=== PATIENT | male | born 1935 | race Caucasian/White ===

== ENCOUNTER 2019-01-09 11:19 | Inpatient (IN) | payer OTHER, MEDICARE ==
[~2019-01-09] VITALS: Ht 175.3 cm; Wt 88.1 kg
[~2019-01-09 11:19] MED LIST: ASCO500 PO; ASPI81EC PO; BACL20; COLCHICINE0.6 MG PO; Cipro500 MG PO; Flagyl500 MG PO; GLIP10 PO; INSLIS75I SC; INSN100I SC; METO50ER PO; PSYL5.85P PO; SIMV40 PO
[2019-01-09 12:37] LABS: BASOPHILS ABSOLUTE AUTO 0.02 K/mm3 (0.00-0.23); BASOPHILS PERCENT AUTO 0 % (0-2); EOSINOPHILS ABSOLUTE AUTO 0.05 K/mm3 (0.00-0.68); EOSINOPHILS PERCENT AUTO 1 % (0-6); Hematocrit 34.8 % (37.0-53.0); Hemoglobin 10.9 g/dL (13.5-17.5); IMMATURE GRAN ABSOLUTE AUTO 0.04 K/mm3 (0.00-0.10); IMMATURE GRAN PERCENT AUTO 1 % (0-1); LYMPHOCYTES ABSOLUTE AUTO 0.46 K/mm3 (0.84-5.20); LYMPHOCYTES PERCENT AUTO 7 % (21-46); MONOCYTES ABSOLUTE AUTO 0.25 K/mm3 (0.16-1.47); MONOCYTES PERCENT AUTO 4 % (4-13); Mean Corpuscular HGB 28.4 pg (26.0-34.0); Mean Corpuscular HGB Conc 31.3 g/dL (31.5-36.5); Mean Corpuscular Volume 91 fL (80-100); Mean Platelet Volume 11.2 fL (9.1-12.4); NEUTROPHILS ABSOLUTE AUTO 6.25 K/mm3 (1.96-9.15); NEUTROPHILS PERCENT AUTO 88 % (41-73); Platelet Count 118 K/mm3 (150-400); RDW Coefficient Variation 12.4 % (11.7-14.2); RDW Standard Deviation 40.9 fL (35.1-46.3); Red Blood Cell Count 3.84 M/mm3 (4.30-5.90); White Blood Cell Count 7.07 K/mm3 (4.00-11.30)
[2019-01-09 12:51] LABS: Alanine Aminotransfer (ALT/SGP 23 U/L (12-78); Albumin, Blood 3.2 g/dL (3.4-5.0); Albumin/Globulin Ratio 1.1 (0.8-1.8); Alk Phos 86 U/L (50-136); Anion Gap 12 mmol/L (6-16); Aspartate Aminotrans (AST/SGOT 23 U/L (12-37); Bilirubin, Total 0.8 mg/dL (0.1-1.0); Blood Urea Nitrogen 20 mg/dL (8-24); Bun/Creatinine Ratio 17.7 (12.0-20.0); CO2, Blood 23 mmol/L (21-32); Calcium, Blood 9.2 mg/dL (8.5-10.1); Chloride, Blood 108 mmol/L (98-108); Creatinine, Blood 1.13 mg/dL (0.60-1.20); Glomerular Filtration Rate >60 (60-); Glucose, Blood 327 mg/dL (70-99); Sodium, Blood 143 mmol/L (136-145); Total Protein, Blood 6.2 g/dL (6.4-8.2)
[2019-01-09 14:11] LABS: Bilirubin, Urine Neg (Neg); Blood, Urine 4+ (Neg); Glucose Qualitative, Urine 2+ (Neg); Ketones, Urine 1+ (Neg); Leukocyte Esterase, Urine 3+ (Neg); Nitrite, Urine Neg (Neg); Protein, Urine 3+ (Neg); Urobilinogen, Urine NORM (Normal)
[2019-01-09] MEDS ORDERED: CARV25 PO (14:12)
[2019-01-09] MEDS ORDERED: ALLO100 PO (14:13)
[2019-01-09] MEDS ORDERED: PRAZ5 PO (14:13)
[2019-01-09] MEDS ORDERED: TRAZ50 PO (14:16)
[2019-01-09] MEDS ORDERED: LISI20 PO (14:16)
[2019-01-09] MEDS ORDERED: FURO20 PO (14:16)
[2019-01-09] MEDS ORDERED: SERT100 PO (14:17)
[2019-01-09] MEDS ORDERED: POTCHL20ER PO (14:19)
[2019-01-09] MEDS ORDERED: AMLO5 PO (14:20)
[2019-01-09] MEDS ORDERED: ATOR20 PO (14:20)
[2019-01-09 14:22] LABS: U Amphetamine Screen Not Detected; U Barbituate Screen Not Detected; U Benzodiazapine Screen Not Detected; U Buprenorphine Screen Not Detected; U Cannabinoids Screen Not Detected; U Cocaine Screen Not Detected; U Methadone Screen Not Detected; U Methamphetamine Screen Not Detected; U Opiates Screen Not Detected; U Oxycodone Screen Not Detected; U Phencyclidine Screen Not Detected; U Propoxyphene Screen Not Detected
[2019-01-09] MEDS ORDERED: BASAGLAR K100 UNIT/1 SC (14:22)
[2019-01-09] MEDS ORDERED: Triamcinolone A15 G3 TOP (14:24)
[2019-01-09 14:42] LABS: Appearance, Urine Hazy (Clear); Color, Urine Yellow (P-Yellow)
[2019-01-09 14:43] LABS: Amorphous Light (0-Heavy); Bacteria Many /hpf; Mucus Light (0-Heavy); Squamous Epithelial Cells Rare /hpf (Few); White Blood Cells, Urine 25-50 /hpf (0-5)
--- NOTE | 2019-01-09 18:39 | NUR ---
REPORT RECEIVED FROM CLAU HOWE RN. NO ACUTE ISSUES UPON ARRIVAL TO MEDICAL FLOOR, PATIENT IS ALERT TO SELF, SOME BRUISES NOTE SCATTERED ACROSS BODY FROM FALL. NO CURRENT COMPLAINTS OF PAIN OR DISCOMFORT NOTED. WILL CONTINUE TO MONITOR FOR CHANGES.
--- NOTE | 2019-01-10 02:36 | NUR ---
DR WEAVER ORDERED A MG FOR 01/09/19, HOWEVER IT WAS ORDERED INCORRECTLY AND DID NOT GET DRAWN. IT IS TOO LATE TO ADD IT ON TO BLOOD THAT WAS ALREADY DRAWN THAT IS IN THE LAB. THERE IS ALREADY AN AM MG ORDERED. I CANCELLED THE MG THAT WAS ORDERED INCORRECTLY ON 01/09/19.
--- NOTE | 2019-01-10 04:42 | NUR ---
INGOT CAR OPERATOR SUMMARY Patient slept intermittantly waking to use the toilet. very impulsive, and difficult to communicate with for 2 reasons. 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 difficult reorienting to tasks and situation. No complaints of discomfort. incont of urine and stool. minor bruises on legs, (mostly knees), and small scrape/abrasion right elbow. tolerating fluid boluses without difficulty.
[2019-01-10 06:29] LABS: BASOPHILS ABSOLUTE AUTO 0.02 K/mm3 (0.00-0.23); BASOPHILS PERCENT AUTO 0 % (0-2); EOSINOPHILS ABSOLUTE AUTO 0.19 K/mm3 (0.00-0.68); EOSINOPHILS PERCENT AUTO 3 % (0-6); Hematocrit 32.8 % (37.0-53.0); Hemoglobin 10.5 g/dL (13.5-17.5); IMMATURE GRAN ABSOLUTE AUTO 0.03 K/mm3 (0.00-0.10); IMMATURE GRAN PERCENT AUTO 0 % (0-1); LYMPHOCYTES ABSOLUTE AUTO 1.23 K/mm3 (0.84-5.20); LYMPHOCYTES PERCENT AUTO 16 % (21-46); MONOCYTES ABSOLUTE AUTO 0.53 K/mm3 (0.16-1.47); MONOCYTES PERCENT AUTO 7 % (4-13); Mean Corpuscular HGB 29.1 pg (26.0-34.0); Mean Corpuscular Volume 91 fL (80-100); Mean Platelet Volume 11.2 fL (9.1-12.4); NEUTROPHILS ABSOLUTE AUTO 5.72 K/mm3 (1.96-9.15); NEUTROPHILS PERCENT AUTO 74 % (41-73); Platelet Count 123 K/mm3 (150-400); RDW Coefficient Variation 12.5 % (11.7-14.2); RDW Standard Deviation 41.5 fL (35.1-46.3); Red Blood Cell Count 3.61 M/mm3 (4.30-5.90); White Blood Cell Count 7.72 K/mm3 (4.00-11.30)
[2019-01-10 06:42] LABS: Anion Gap 6 mmol/L (6-16); Blood Urea Nitrogen 21 mg/dL (8-24); Bun/Creatinine Ratio 18.3 (12.0-20.0); CO2, Blood 26 mmol/L (21-32); Calcium, Blood 8.7 mg/dL (8.5-10.1); Chloride, Blood 115 mmol/L (98-108); Creatinine, Blood 1.15 mg/dL (0.60-1.20); Glomerular Filtration Rate >60 (60-); Glucose, Blood 66 mg/dL (70-99); Magnesium, Blood 1.9 mg/dL (1.6-2.4); Potassium, Blood 3.6 mmol/L (3.5-5.5); Sodium, Blood 147 mmol/L (136-145)
--- NOTE | 2019-01-10 12:11 | NUR ---
UNSTEADY GAIT GRABBING FOR SUPPLIES AND SETTING OFF CHAIR ALARM NUMEROUS TIMES. REDIRECTED BACK TO CHAIR. CONFUSED.
--- NOTE | 2019-01-10 12:50 | NUR ---
PT CONTINUES TO CLIMB OUT OF BED AND ATTEMPT TO GET UP FROM CHAIR. REMOVED HOSPITAL GOWN AND ATTENDS AND URINATED ON FLOOR. DAUGHTER ARRIVED IN ROOM. REPORTED APPOVE TO DR. WEAVER NEW ORDERS RECEIVED.
--- NOTE | 2019-01-10 13:55 | NUR ---
PT CONTINUES TO MOVE AROUND IN BED WITH OCCAISIONAL ATTEMPTS TO GET UP. CONFUSED. FAMILY AT BEDSIDE AND ASSISTING WITH REDIRECTION.
--- NOTE | 2019-01-10 14:49 | NUR ---
PT CLIMBED OUT OF BED AND URINATED ON FLOOR MULTIPLE ATTEMPTS TO HAVE PT SIT DOWN. PT QUITE STRONG AND UNWILLING TO COOPERATE. PULLING AT IV LINE. ABLE TO STAND BUT SWAY'S BACK AND FORTH WITH WEAKNESS AND UNSTEADY GAIT.
--- NOTE | 2019-01-10 17:50 | NUR ---
Per admit trigger, I attempted to meet with Mr. Alvarado to offer prayer and spiritual support. When I entered room, he was urinating on the floor, confused, and unreasonable. Nursing immediately responded and were very busy trying to direct him. Silent prayer for peace provided. Auto Electrician services will attempt meeting with pt and family once pt calm and responsive.
--- NOTE | 2019-01-10 19:19 | NUR ---
SHIFT SUMMARY VERY CONFUSED AND AGITATED THIS AFTERNOON THROUGH EVENING. CONTINUALLY GETTING OUT OF BED/CHAIR AND PULLING AT LINES. PULLED IV OUT. URINATED ON FLOOR X2. FLAILING ARMS AROUND WITH UNSTEADY GAIT AND NOT RESPONSIVE TO REDIRECTION. ATE SOME DINNER WITH ASSISTANCE AND DRANK ORANGE JUICE. INCONTINENT. DAUGHTER TO VISIT AND ATTENTIVE PLEASANT. AWAITING PLACEMENT.
--- NOTE | 2019-01-11 00:52 | NUR ---
Patient extremely agitated tonight. he has torn out of bilat wrist restraints twice already. been given IM haldol 5mg without any signs of being affected. At 2300, (2 hours later) he was given 1mg iv ativan, and this still did no have an effect. patient remains in restraints due to weakness and serious increase in fall risk. see flowsheet
[2019-01-11 05:56] LABS: BASOPHILS ABSOLUTE AUTO 0.02 K/mm3 (0.00-0.23); BASOPHILS PERCENT AUTO 0 % (0-2); EOSINOPHILS ABSOLUTE AUTO 0.26 K/mm3 (0.00-0.68); EOSINOPHILS PERCENT AUTO 5 % (0-6); Hematocrit 34.2 % (37.0-53.0); Hemoglobin 10.7 g/dL (13.5-17.5); IMMATURE GRAN ABSOLUTE AUTO 0.01 K/mm3 (0.00-0.10); IMMATURE GRAN PERCENT AUTO 0 % (0-1); LYMPHOCYTES PERCENT AUTO 22 % (21-46); MONOCYTES ABSOLUTE AUTO 0.44 K/mm3 (0.16-1.47); MONOCYTES PERCENT AUTO 8 % (4-13); Mean Corpuscular HGB 28.9 pg (26.0-34.0); Mean Corpuscular HGB Conc 31.3 g/dL (31.5-36.5); Mean Corpuscular Volume 92 fL (80-100); Mean Platelet Volume 11.4 fL (9.1-12.4); NEUTROPHILS ABSOLUTE AUTO 3.54 K/mm3 (1.96-9.15); NEUTROPHILS PERCENT AUTO 65 % (41-73); Platelet Count 114 K/mm3 (150-400); RDW Coefficient Variation 12.4 % (11.7-14.2); RDW Standard Deviation 42.3 fL (35.1-46.3); White Blood Cell Count 5.47 K/mm3 (4.00-11.30)
[2019-01-11 06:23] LABS: Anion Gap 7 mmol/L (6-16); Blood Urea Nitrogen 13 mg/dL (8-24); CO2, Blood 28 mmol/L (21-32); Calcium, Blood 8.6 mg/dL (8.5-10.1); Chloride, Blood 111 mmol/L (98-108); Creatinine, Blood 0.93 mg/dL (0.60-1.20); Glomerular Filtration Rate >60 (60-); Glucose, Blood 88 mg/dL (70-99); Potassium, Blood 3.4 mmol/L (3.5-5.5); Sodium, Blood 146 mmol/L (136-145)
--- NOTE | 2019-01-11 12:09 | NUR ---
PT UPDATED PT UPDATED ON PT CONDITION.
--- NOTE | 2019-01-11 13:48 | NUR ---
RESTRAINTS REMOVED AT THIS TIME. PT MORE CLEAR WHEN WORKING WITH THERAPY. PT HAS NO IV ACCESS AT THIS TIME. PT UP IN CHAIR. RESTRAINTS REMOVED AT THIS TIME. WILL MONITOR HOW PT DOES WITHOUT THEM.
--- NOTE | 2019-01-11 17:06 | NUR ---
WRIST RESTRAINTS REAPPLIED- LATE ENTRY FOR 151. SOFT BILAT WRIST RESTRAINTS REAPPLIED TO PROTECT NEWLY PLACED POWERGLIDE. ORDER RECIEVED FROM DR. WEAVER. WILL CONTINUE TO MONITOR.
--- NOTE | 2019-01-11 17:07 | NUR ---
SHIVANI VEST APPLIED- LATE ENTRY FOR 1610. DR. WEAVER CALLED & SHIVANI VEST ADDED TO RESTRAINT ORDER. PT SLIPPED OUT OF WRIST RESTRAINTS 3 TIMES WITHIN 1 HOUR. PT HIGH FALL RISK. PT TOLERATING VEST & RESTRAINTS WELL WHEN APPLIED.
--- NOTE | 2019-01-11 17:18 | NUR ---
SHIFT SUMMARY P[T CURRENTLY IN BILAT SOFT WRIST RESTRAINTS & A SHIVANI VEST TO PROTECT LINES & TO PROTECT PT FROM FALLING. SEE RESTRAINT NOTES. PT MORE CLEAR THIS SHIFT AFTER WAKING. TRYING TO HOLD OFF ON ATIVAN TO SEE IF PT CONTINUES TO CLEAR UP MENTALY. PT EVALED BY PT TODAY. PT 1P ASSIST TRANSFER & AMBULATION. NO OTHER CHANGES IN ASSESSMENT AT THIS TIME. PT HYPERTENSIVE. PT MEDICATED WITH COREG. WILL CONTINUE TO MONITOR. OTHER VITALS STABLE.
--- NOTE | 2019-01-12 00:09 | NUR ---
AROUND 1900, PT BED ALARM WENT OFF AND DAY SHIFT LILLIAN MURPHY IMMEDIATELY WENT IN TO ASSIST. LILLIAN CALLED ASSISTANCE FROM OTHER STAFF. UPON ASSESSMENT WAS FOUND TO HAVE SLID DOWN THE BED AND WAS KNEEING BESIDE THE BED. NO APPARENT INJURIES NOTED. WHEN ASKED IF PT WAS HURT, HE STATED "NO". PT HELPED BACK TO BED. VITALS TAKEN, NO ACUTE CHANGED. OLAF MACHINE CAGE MAKER NOTIFIED AND IRIS COMPLETED. NO FURTHER ORDERS GIVEN.
--- NOTE | 2019-01-12 04:27 | NUR ---
LAND DEGRADATION ANALYST SUMMARY PT FOUND ON THE FLOOR BESIDE THE BED AT BEGINNING OF SHIFT. SEE PREVIOUS NOTE. PT DID NOT SLEEP AT ALL THIS SHIFT. PT AGITATED, FIDGETTED IN BED AND KEPT SWINGING LEGS OFF THE BED. MULTIPLE NURSING STAFF HAVE COME IN FREQUENTLY TO RE-ADJUST AND CHANGE PT. PT WOULD BECOME MORE AGITATED, COMBATIVE WHEN BEING CHANGED AND WOULD CURSE AND SMACK AWAY NURSE'S HAND FROM CLEANING. PT HAVE BEEN PULLING AT RESTRAINTS ALL NIGHT. PT MEDICATED WITH IV ATIVAN AT BEGINNING OF SHIFT. THIS DID NOT HELP. IV HALDOL WAS GIVEN AN HOUR AFTER WHICH DID NOT HELP EITHER. PT WAS STILL AGITATED AND FIDGITY BEFORE. HOSPITALIST OLAF WAS NOTIFIED OF PT'S SITUATION AND IM ZYPREXA WAS ORDERED. THIS DID NOT WORK EITHER. REFER TO EMAR FOR MORE INFORMATION. PT HAS GONE THROUGH MULTIPLE LARGE WET BRIEFS THROUGH THE NIGHT. PT WAS ALSO BLADDER SCANNED WITH A 44 ML RESIDUAL TO CHECK IF HE IS RETAINING URINE THAT MIGHT CAUSE THE AIGITATION. MULTIPLE STAFF HAVE GONE IN AND OUT TO STAY WITH PATIENT AND TALKED WITH PT. NOTHING HAS HELPED PT IMPROVE THIS AGITATION. SMALL ABRASION FOUND ON BACK OF RIGHT ELBOW DUE TO CONSTANT RUBBING AGAINST SHEETS. BANDAGE APPLIED. WILL CONTINUE TO MONITOR.
[2019-01-12 05:16] LABS: BASOPHILS ABSOLUTE AUTO 0.03 K/mm3 (0.00-0.23); BASOPHILS PERCENT AUTO 0 % (0-2); EOSINOPHILS ABSOLUTE AUTO 0.26 K/mm3 (0.00-0.68); EOSINOPHILS PERCENT AUTO 4 % (0-6); Hematocrit 34.8 % (37.0-53.0); Hemoglobin 11.2 g/dL (13.5-17.5); IMMATURE GRAN ABSOLUTE AUTO 0.02 K/mm3 (0.00-0.10); IMMATURE GRAN PERCENT AUTO 0 % (0-1); LYMPHOCYTES ABSOLUTE AUTO 1.09 K/mm3 (0.84-5.20); LYMPHOCYTES PERCENT AUTO 15 % (21-46); MONOCYTES ABSOLUTE AUTO 0.52 K/mm3 (0.16-1.47); MONOCYTES PERCENT AUTO 7 % (4-13); Mean Corpuscular HGB 29.2 pg (26.0-34.0); Mean Corpuscular HGB Conc 32.2 g/dL (31.5-36.5); Mean Corpuscular Volume 91 fL (80-100); Mean Platelet Volume 11.4 fL (9.1-12.4); NEUTROPHILS ABSOLUTE AUTO 5.34 K/mm3 (1.96-9.15); NEUTROPHILS PERCENT AUTO 74 % (41-73); Platelet Count 124 K/mm3 (150-400); RDW Coefficient Variation 12.3 % (11.7-14.2); RDW Standard Deviation 40.5 fL (35.1-46.3); Red Blood Cell Count 3.83 M/mm3 (4.30-5.90); White Blood Cell Count 7.26 K/mm3 (4.00-11.30)
[2019-01-12 05:36] LABS: Anion Gap 9 mmol/L (6-16); Blood Urea Nitrogen 16 mg/dL (8-24); CO2, Blood 28 mmol/L (21-32); Calcium, Blood 8.8 mg/dL (8.5-10.1); Chloride, Blood 108 mmol/L (98-108); Glomerular Filtration Rate >60 (60-); Glucose, Blood 92 mg/dL (70-99); Potassium, Blood 2.8 mmol/L (3.5-5.5); Sodium, Blood 145 mmol/L (136-145)
--- NOTE | 2019-01-12 07:30 | NUR ---
PT AGITATED; SWINGING ARMS; PULLING AT RESTRAINTS; CURSING; UNSTEADY GAIT PULLING AT LINES AND RIPPING ATTENDS. TRANSFERRED TO RECLINER.
--- NOTE | 2019-01-12 09:18 | NUR ---
REPORT FROM NOC RN'S THAT PATIENT DID NOT SLEEP OVERNIGHT. UP AND CLIMBING OUT OF BED PULLING AT LINES. PT NOW RESTING WITH EYES CLOSED. RR EVEN AND UNLABORED. APPEARS COMFORTABLE. PO MEDS HELD UNTIL PT AWAKENS.
--- NOTE | 2019-01-12 12:19 | NUR ---
DAUGHTER ATTENTIVE AND AT BEDSIDE.
--- NOTE | 2019-01-12 18:37 | NUR ---
SHIFT SUMMARY RESTED IN RECLINER FOR MOST OF DAY. ABLE TO STAND FOR ATTENDS CHANGES. SHIVANI AND WRIST RESTRAINTS IN PLACE. CONFUSED WITH GARBLED SPEECH. PSYCH CONSULT REQUESTED. ATE DINNER. TAKING PO FLUIDS. DAUGHTER TO VISIT. QUITE A BIT MORE CALM THIS SHIFT ALTHOUGH MENTATION NOT IMPROVED. INCONTINENT. RECEIVING LASIX TABS POTASSIUM INFUSING.
[2019-01-13 05:04] LABS: BASOPHILS ABSOLUTE AUTO 0.04 K/mm3 (0.00-0.23); BASOPHILS PERCENT AUTO 0 % (0-2); EOSINOPHILS ABSOLUTE AUTO 0.15 K/mm3 (0.00-0.68); EOSINOPHILS PERCENT AUTO 1 % (0-6); Hematocrit 39.2 % (37.0-53.0); Hemoglobin 12.6 g/dL (13.5-17.5); IMMATURE GRAN ABSOLUTE AUTO 0.02 K/mm3 (0.00-0.10); IMMATURE GRAN PERCENT AUTO 0 % (0-1); LYMPHOCYTES ABSOLUTE AUTO 1.17 K/mm3 (0.84-5.20); LYMPHOCYTES PERCENT AUTO 11 % (21-46); MONOCYTES ABSOLUTE AUTO 0.71 K/mm3 (0.16-1.47); MONOCYTES PERCENT AUTO 7 % (4-13); Mean Corpuscular HGB 28.4 pg (26.0-34.0); Mean Corpuscular HGB Conc 32.1 g/dL (31.5-36.5); Mean Corpuscular Volume 89 fL (80-100); Mean Platelet Volume 10.9 fL (9.1-12.4); NEUTROPHILS ABSOLUTE AUTO 8.58 K/mm3 (1.96-9.15); NEUTROPHILS PERCENT AUTO 80 % (41-73); Platelet Count 149 K/mm3 (150-400); RDW Coefficient Variation 12.5 % (11.7-14.2); RDW Standard Deviation 40.9 fL (35.1-46.3); Red Blood Cell Count 4.43 M/mm3 (4.30-5.90); White Blood Cell Count 10.67 K/mm3 (4.00-11.30)
[2019-01-13 05:44] LABS: Anion Gap 7 mmol/L (6-16); Blood Urea Nitrogen 16 mg/dL (8-24); Bun/Creatinine Ratio 18.1 (12.0-20.0); CO2, Blood 29 mmol/L (21-32); Calcium, Blood 9.6 mg/dL (8.5-10.1); Chloride, Blood 109 mmol/L (98-108); Creatinine, Blood 0.88 mg/dL (0.60-1.20); Glomerular Filtration Rate >60 (60-); Glucose, Blood 116 mg/dL (70-99); Potassium, Blood 3.8 mmol/L (3.5-5.5); Sodium, Blood 145 mmol/L (136-145)
--- NOTE | 2019-01-13 05:44 | NUR ---
AOXO. LS CLEAR, DENIES SOB. NO C/O NAUSEA OR PAIN. PT STARTED SHIFT IN SOFT WRISTS RESTRAINTS AND SHIVANI VEST. PT WAS AGITATED AND GETTIN OUT OF HIS RESTRAINTS AND PULLED OUT HIS POWERGLIDE. 4 POINT TAT RESTRAINTS ORDERED @ 2335. PT WAS SAFETY RISK TO HIMSELF AND STAFF, SECURITY HAD TO BE CALLED. PT INC, ATTENDS CHANGED MULTIPLE TIMES THROUGHOUT THE NIGHT. BOTTOM IS RED BUT NO OPEN AREAS. R ELBOW ABRASION. HS BG WAS 138 BUT PT REFUSED INSULIN. VSS ON . IV ATIVAN AND HALDOL GIVEN FOR PRNS. PLAN IS TO SEE PSYCH ON TUESDAY.
[2019-01-13 08:58] LABS: BASOPHILS ABSOLUTE AUTO 0.03 K/mm3 (0.00-0.23); BASOPHILS PERCENT AUTO 0 % (0-2); EOSINOPHILS ABSOLUTE AUTO 0.12 K/mm3 (0.00-0.68); EOSINOPHILS PERCENT AUTO 1 % (0-6); Hematocrit 43.3 % (37.0-53.0); IMMATURE GRAN ABSOLUTE AUTO 0.04 K/mm3 (0.00-0.10); IMMATURE GRAN PERCENT AUTO 0 % (0-1); LYMPHOCYTES ABSOLUTE AUTO 1.49 K/mm3 (0.84-5.20); LYMPHOCYTES PERCENT AUTO 12 % (21-46); MONOCYTES ABSOLUTE AUTO 0.77 K/mm3 (0.16-1.47); MONOCYTES PERCENT AUTO 6 % (4-13); Mean Corpuscular HGB 29.2 pg (26.0-34.0); Mean Corpuscular HGB Conc 32.3 g/dL (31.5-36.5); Mean Corpuscular Volume 90 fL (80-100); NEUTROPHILS ABSOLUTE AUTO 9.54 K/mm3 (1.96-9.15); NEUTROPHILS PERCENT AUTO 80 % (41-73); Platelet Count 164 K/mm3 (150-400); RDW Coefficient Variation 12.4 % (11.7-14.2); RDW Standard Deviation 40.9 fL (35.1-46.3); Red Blood Cell Count 4.79 M/mm3 (4.30-5.90); White Blood Cell Count 11.99 K/mm3 (4.00-11.30)
[2019-01-13 11:42] LABS: BASOPHILS ABSOLUTE AUTO 0.05 K/mm3 (0.00-0.23); BASOPHILS PERCENT AUTO 0 % (0-2); EOSINOPHILS ABSOLUTE AUTO 0.05 K/mm3 (0.00-0.68); EOSINOPHILS PERCENT AUTO 0 % (0-6); Hematocrit 40.2 % (37.0-53.0); Hemoglobin 13.1 g/dL (13.5-17.5); IMMATURE GRAN ABSOLUTE AUTO 0.07 K/mm3 (0.00-0.10); IMMATURE GRAN PERCENT AUTO 1 % (0-1); LYMPHOCYTES ABSOLUTE AUTO 0.73 K/mm3 (0.84-5.20); LYMPHOCYTES PERCENT AUTO 5 % (21-46); MONOCYTES ABSOLUTE AUTO 0.66 K/mm3 (0.16-1.47); MONOCYTES PERCENT AUTO 5 % (4-13); Mean Corpuscular HGB 28.8 pg (26.0-34.0); Mean Corpuscular HGB Conc 32.6 g/dL (31.5-36.5); Mean Corpuscular Volume 88 fL (80-100); Mean Platelet Volume 11.3 fL (9.1-12.4); NEUTROPHILS ABSOLUTE AUTO 12.21 K/mm3 (1.96-9.15); NEUTROPHILS PERCENT AUTO 89 % (41-73); Platelet Count 148 K/mm3 (150-400); RDW Coefficient Variation 12.4 % (11.7-14.2); RDW Standard Deviation 40.3 fL (35.1-46.3); Red Blood Cell Count 4.55 M/mm3 (4.30-5.90); White Blood Cell Count 13.77 K/mm3 (4.00-11.30)
[2019-01-13 11:59] LABS: Alanine Aminotransfer (ALT/SGP 38 U/L (12-78); Albumin, Blood 3.4 g/dL (3.4-5.0); Albumin/Globulin Ratio 0.9 (0.8-1.8); Alk Phos 89 U/L (50-136); Anion Gap 8 mmol/L (6-16); Aspartate Aminotrans (AST/SGOT 42 U/L (12-37); Bilirubin, Total 0.6 mg/dL (0.1-1.0); Blood Urea Nitrogen 17 mg/dL (8-24); Bun/Creatinine Ratio 19.7 (12.0-20.0); CO2, Blood 27 mmol/L (21-32); Calcium, Blood 9.6 mg/dL (8.5-10.1); Chloride, Blood 108 mmol/L (98-108); Creatinine, Blood 0.86 mg/dL (0.60-1.20); Globulin, Blood 3.6 g/dL (2.2-4.0); Glomerular Filtration Rate >60 (60-); Glucose, Blood 223 mg/dL (70-99); Potassium, Blood 3.5 mmol/L (3.5-5.5); Sodium, Blood 143 mmol/L (136-145)
--- NOTE | 2019-01-13 15:28 | NUR ---
SHIFT SUMMARY: PT HAS BEEN SLEEPING SOUNDLY MOST OF THE DAY. TWICE HE OPENED HIS EYES AND WAS AWAKE BUT HE HAS NOT BEEN ORIENTED EVEN TO HIMSELF. PT HAS BEEN INC OF URINE AND REQUIRES 2 PEOPLE TO TURN AND REPOSITION. 4 POINT RESTRAINTS WERE REMOVED THIS MORNING AND THE SHIVANI VEST REMAINS INTACT, THE DOCTOR AND CHARGE NURSE ARE BOTH AWARE. BP HAS BEEN ELEVATED AND DR WEAVER WAS NOTIFIED AND GAVE ORDERS FOR A CATAPRESS PATCH REFLECTED ON THE MAR WHICH WAS EFFECTIVE AND THE BP WAS MUCH LOWER AFTER APPLICATION. DR WEAVER ALSO ORDERED A PICC LINE AND STATED THAT A POWERGLIDE WOULD BE SUFFICIENT TOO. THIS NURSE NOTIFIED THE CLINICAL COORDINATOR AND AWAITS PLACEMENT. MORNING MEDS WERE HELD SINCE THE PT WAS NOT AWAKE ENOUGH TO SWALLOW SAFELY AND DR WEAVER CONCURS WITH HOLDING THEM UNTIL HE IS MORE ALERT. PT IS NOT ABLE TO MAKE HIS NEEDS KNOWN AND HAS THE BED ALARM ON FOR SAFETY AND REQUIRES FREQUENT NURSE ROUNDING.
--- NOTE | 2019-01-14 02:57 | NUR ---
CONTINUES TO ATTEMPT TO GET OUT OF BED AND BE NONCOMPLIANT WITH DIRECTIONS FOR SAFETY. POWER GLIDE REMAINS IN UPPER LET ARM. SHIVANI VEST IN PLACE FOR SAFETY AND MEDICAL NEEDS. IVF INFUSING. BP ELEVATED - MD WAS NOTIFIED, ORDERS RECEIVED FOR ANTIHYPERTENSIVE Q 6 HRS, (SEE MAR FOR DETALS). CALL LIGHT IN REACH.
[2019-01-14 04:55] LABS: BASOPHILS ABSOLUTE AUTO 0.02 K/mm3 (0.00-0.23); BASOPHILS PERCENT AUTO 0 % (0-2); EOSINOPHILS PERCENT AUTO 0 % (0-6); Hematocrit 40.1 % (37.0-53.0); Hemoglobin 12.7 g/dL (13.5-17.5); IMMATURE GRAN ABSOLUTE AUTO 0.06 K/mm3 (0.00-0.10); IMMATURE GRAN PERCENT AUTO 1 % (0-1); LYMPHOCYTES PERCENT AUTO 8 % (21-46); MONOCYTES ABSOLUTE AUTO 1.03 K/mm3 (0.16-1.47); MONOCYTES PERCENT AUTO 8 % (4-13); Mean Corpuscular HGB 28.5 pg (26.0-34.0); Mean Corpuscular HGB Conc 31.7 g/dL (31.5-36.5); Mean Corpuscular Volume 90 fL (80-100); NEUTROPHILS ABSOLUTE AUTO 11.04 K/mm3 (1.96-9.15); NEUTROPHILS PERCENT AUTO 83 % (41-73); Platelet Count 159 K/mm3 (150-400); RDW Coefficient Variation 12.7 % (11.7-14.2); RDW Standard Deviation 41.2 fL (35.1-46.3); Red Blood Cell Count 4.46 M/mm3 (4.30-5.90); White Blood Cell Count 13.25 K/mm3 (4.00-11.30)
[2019-01-14 05:18] LABS: Anion Gap 9 mmol/L (6-16); Blood Urea Nitrogen 17 mg/dL (8-24); Bun/Creatinine Ratio 19.6 (12.0-20.0); CO2, Blood 26 mmol/L (21-32); Calcium, Blood 9.2 mg/dL (8.5-10.1); Chloride, Blood 112 mmol/L (98-108); Creatinine, Blood 0.87 mg/dL (0.60-1.20); Glomerular Filtration Rate >60 (60-); Glucose, Blood 136 mg/dL (70-99); Potassium, Blood 3.3 mmol/L (3.5-5.5); Sodium, Blood 147 mmol/L (136-145)
[2019-01-14 08:12] LABS: BASOPHILS ABSOLUTE AUTO 0.01 K/mm3 (0.00-0.23); BASOPHILS PERCENT AUTO 0 % (0-2); EOSINOPHILS ABSOLUTE AUTO 0.01 K/mm3 (0.00-0.68); EOSINOPHILS PERCENT AUTO 0 % (0-6); Hemoglobin 12.6 g/dL (13.5-17.5); IMMATURE GRAN ABSOLUTE AUTO 0.05 K/mm3 (0.00-0.10); IMMATURE GRAN PERCENT AUTO 0 % (0-1); LYMPHOCYTES ABSOLUTE AUTO 1.12 K/mm3 (0.84-5.20); LYMPHOCYTES PERCENT AUTO 8 % (21-46); MONOCYTES ABSOLUTE AUTO 1.03 K/mm3 (0.16-1.47); MONOCYTES PERCENT AUTO 8 % (4-13); Mean Corpuscular HGB Conc 32.3 g/dL (31.5-36.5); Mean Corpuscular Volume 90 fL (80-100); Mean Platelet Volume 10.9 fL (9.1-12.4); NEUTROPHILS PERCENT AUTO 84 % (41-73); Platelet Count 163 K/mm3 (150-400); RDW Coefficient Variation 12.7 % (11.7-14.2); RDW Standard Deviation 41.8 fL (35.1-46.3); Red Blood Cell Count 4.35 M/mm3 (4.30-5.90); White Blood Cell Count 13.72 K/mm3 (4.00-11.30)
--- NOTE | 2019-01-14 09:52 | NUR ---
Pt resting in bed with [place]. Pt appears mildly anxous as evidenced by constand repositioning self and grabing at blankets. Pt attempts to verbalize with one word answers that are not recognizable. Spoke with bedside RN Ralph and discussed case. Pt is still significantly confused and is not safe for PO intake including medications. Spoke with Dr Alexander and discussed case. 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 Dr Alexander reports goals of care including comfort care would be appropriate discussion with family. Called and spoke with Pt's Binta. Engaged in therapeutic discussion regarding Pt's clinical condition. Discussed goals of care including comfort care and hospice. Educated on comfort care and hospice philosophy. Binta reports inability to care for Pt at home and is requesting if she decides hosp[facility] Pt is a and is 60% service connected. Binta would like to have discussion with daughter before making a decision. Daughter Shanell is currently at work and will plan to visit Pt this evening. Gave Binta Palliative Care contact information and instructed to call with any questions or concerns. Palliative Care will remain available.
--- NOTE | 2019-01-14 14:38 | NUR ---
Pt visit this afternoon. Pt resting in bed upon arrival. He appears agitated as evidenced by scotting down in bed. Esmeralda Vest in place. Bedside RN to offer lorazepam. Met with Pt's Binta, enoch Moran outside of Pt's room. Discussed goals of care. Listened as Binta states Pt's quality of life has diminished and Pt would not want to continue treatment in his current codition. Educated on comfort care and hospice philosophy with V/U made by and daughter. and daughter are in agreement Pt should be placed on comfort care and their goal is to have Pt placed at the [facility] on hospice. and daughter complete new POLST with Pt's wishes to be DNR and comfort measures only. Family expresses appreciation and no other concerns reported at this time. Spoke with Dr Alexander and discussed family's wishes. Placed order for comfort care, comfort care order set, and discontinued maintenance medications per V/O from Dr Alexander. Palliative Care will remain available.
--- NOTE | 2019-01-14 15:45 | NUR ---
SHIFT SUMMARY: PT HAS BEEN AWAKE AND ALERT BUT NOT ORIENTED. HIS SPEECH IS GARBLED AND NONSENSICAL. TELE WAS DCD THIS MORNING AFTER REVIEWING MEDS WITH DR WEAVER. PT HAS BEEN MORE RESTLESS AND AGITATED THAN YESTERDAY AND SHIVANI REMAINS IN PLACE. PT IS INC OF B/B. SPOKE WITH PALLIATIVE CARE NURSE TODAY AND THE PT HAS TRANSITIONED TO COMFORT CARE. IV ATIVAN WAS GIVEN ORDERED BUT PT STILL REMAINS ANXIOUS. POWER GLIDE REMAINS PATENT IN LUE. FLUIDS HAVE BEEN DCD. PT IS A X 2 ASSIST FOR TURNING AND RE-POSITIONING AND DOES NOT FOLLOW DIRECTION AND NEEDS CONSTANT SAFETY QUEING. PT IS VISIBLE ON THE REMOTE MONITOR AND NEEDS FREQUNET NURSE ROUNDING.
--- NOTE | 2019-01-15 04:24 | NUR ---
SHIFT SUMMARY PT PLEASANTLY CONFUSED THIS EVENING. OCCASSIONALLY MUMBLES INCOHERANTLY OTHERWISE MOSTLY NONVERBAL. NO S/S OF AGRESSION. PT DOES BECOME RESTLESS AT TIMES. MEDICATED PER EMAR THROUGHOUT THE SHIFT. BREATHING MORE LABORED THIS EVENING. ROXANOL GIVEN TO EASE BREATHING. PT INCONTINENT, ATTENDS IN PLACE. SHIVANI VEST REMAINS IN PLACE. PT DOES ATTEMPT TO GET OOB AT TIMES. NOT REDIRECTABLE. PT ON CAMERA WELL. POWERGLIDE TO LEONID WORKS WELL. PT RESTING COMFORTABLY AT THIS TIME. WILL CONTINUE TO MONITOR.
--- NOTE | 2019-01-15 09:39 | NUR ---
Comfort Care: Pt placed on comfort measures yesterday. He appears to be resting comfortably. No s/s of distress. Family is not bedside. Notes indicate that family would like him to discharge to [facility] for hospice care or to other placement. Notes, medications reviewed.
--- NOTE | 2019-01-15 16:02 | NUR ---
SHIFT SUMMARY: PT HAS BEEN AWAKE FOR MOMENTS TODAY BUT NOT ORIENTED. HE WAS ANXIOUS AND RECEIVED MEDS ORDERED AND THEY WERE EFFECTIVE. DURING REPOSITIONING PT GRIMACED WITH PAIN IN HIS RIGHT LEG AND WAS GIVEN PAIN MEDS ORDERED AND FELL BACK ASLEEP. HIS FAMILY CAME FOR A VERY BRIEF MOMENT TO SEE HIM AND THEN LEFT AGAIN. POWER GLIDE REMAINS INTACT TO LEONID. PT IS CURRENTLY SLEEPING COMFORTABLY IN BED. HE CANNOT MAKE HIS NEEDS KNOWN AND REQUIRES FREQUENT NURSE ROUNDING AND TOILETING.
--- NOTE | 2019-01-15 16:33 | NUR ---
Spiritual Care inital note: Mr. Norris slept peacefully while I spoke to his VIANCA, Demar, at bedside. Demar tells me that he and his are over whelmed both emotionally and physically. Apparently, seeing pt decline and pass is "too much" for his spouse and pt's . Therefore, Demar is the one to make visits. He spoke at length about Mr. 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 I provided gentle guidence and emotional affirmation of love/stregth. Encouraged self-care and offered continued addiction counselor. Demar expressed gratitude for emotional support. Pt appears comfortable and well cared-for by nursing. I will remain available.
--- NOTE | 2019-01-15 20:15 | NUR ---
COMFORT CARE 2014 ATTEMPTING TO EXIT BED UPON ENTRY. ATTENDS CHANGED. ORAL CARE COMPLETED. PATIENT REPOSITIONING. NO ACUTE CHANGES NOTED. BED IN LOWEST POSITION; ALARM ON. CALL LIGHT WITHIN REACH. TM.
--- NOTE | 2019-01-15 22:24 | NUR ---
COMFORT CARE 2137 STATES PAINFUL; MOANS UPON TURNING. WILL MEDICATE PER EMAR. ATTENDS CHANGED. ORAL CARE COMPLETED. REPOSITIONED. BED IN LOWEST POSITION; ALARM ON. CALL LIGHT WITHIN REACH. [facility].
--- NOTE | 2019-01-16 00:05 | NUR ---
PATIENT SLEEPING COMFORTABLY IN HIS BED. BED IN LOWEST POSITION WITH WHEELS LOCKED.
--- NOTE | 2019-01-16 03:01 | NUR ---
PATIENT'S ATTENDS CHANGED. PATIENT REPOSITIONED.
--- NOTE | 2019-01-16 03:02 | NUR ---
PATIENT RESTING COMFORTABLY. EYES OPEN AND WATCHING TV. NO SIGNS OF PAIN.
--- NOTE | 2019-01-16 04:36 | NUR ---
SHIFT SUMMARY PATIENT ONLY REQUIRED ONE 5 MG DOSE OF ROXINOL OVERNIGHT FOR PAIN. THE REST OF THE NIGHT HE SLEPT COMFORTABLY IN HIS BED EXCEPT FOR WHEN HE WAS WET. WHEN HE WAS WET HE WOULD TRY AND GET OUT OF BED. POWERGLIDE IN LEFT ARM PATENT AND FLUSHED. BED IN LOWEST POSITION WITH WHEELS LOCKED AND ALARM ON. CALL LIGHT WITHIN REACH. REPORT GIVEN TO ONCSANAM RN.
--- NOTE | 2019-01-16 05:58 | NUR ---
PATIENT REPOSITIONED. FRANCY CARE DONE AND ATTENDS CHANGED. ORAL CARE PERFORMED.
--- NOTE | 2019-01-16 16:03 | NUR ---
Pt resting in bed upon arrival. His respirations are increased 28/min but do not appear to be labored. Pt does not repond to touch or moderate level of verbal stimuli. Spoke with bedside RN Luisa, discussed case and reviewed comfort medications. Shanell reports administering haloperidol and Pt has been sleeping since. Palliative Care will remain available.
--- NOTE | 2019-01-16 17:37 | NUR ---
SHIFT SUMMARY PT AGITATED THIS MORNING, KICKING LEGS OVER RAILS AND HOLLERING OUT. HALDOL 2MG GIVEN AND PT SLEPT THROUGH MOST OF DAY. AWAKE NOW AND GRABBING AT STAFF AND MAKING CONVERSATION THAT IS HARD TO FOLLOW. PULLING ATTENDS OFF. ROXONAL GIVEN NOW DUE TO RAPID RESP AND INCREASE IN RESTLESSNESS.
--- NOTE | 2019-01-16 20:14 | NUR ---
Patient is sleeping comfortably
--- NOTE | 2019-01-17 03:28 | NUR ---
repositioned, changed brief, and provided oral care. Patient appears comfortable.
--- NOTE | 2019-01-17 04:53 | NUR ---
Shift Summary Patient slept well overnight. He does not appear to be in pain or uncomfortable. He breathing quite heavily through his mouth, so oral care is done frequently. Assisted to reposition and change incontinent briefs.
--- NOTE | 2019-01-17 07:09 | NUR ---
assisted to reposition. dry brief
--- NOTE | 2019-01-17 07:10 | NUR ---
Assisted to reposition. oral care complete.
--- NOTE | 2019-01-17 09:09 | NUR ---
Clinical Visit: Comfort Care: Pt is sitting up in bed. No s/s of distress at this time. He is eating a good portion of his breakfast, full assist of meals by nursing staff. Family is not at bedside at this time.
--- NOTE | 2019-01-17 17:44 | NUR ---
SHIFT SUMMARY PT RESTLESS AT TIMES IN BED BUT USUALLY SLEEPING. ATE BREAKFAST WITH MINIMAL DIFFICULTY. LUNCH WAS MORE DIFFICULT AND PUREE ORDERED FOR SUPPER. DC PALLIATIVE IN TO SEE PT FOR EVALUATION.
--- NOTE | 2019-01-18 01:46 | NUR ---
Assisted to repostition. Patient appears comfortable. Offered fluids and he was able to drink a good amount of water.
--- NOTE | 2019-01-18 02:27 | NUR ---
repositioned and changed. Patient appears comfortable
--- NOTE | 2019-01-18 06:12 | NUR ---
Shift Summary Patient slept well overnight between cares. He was able to drink a fluids PO without apparent aspiration issue. Repositioned and changed briefs for comfort. frequent oral care provided.
--- NOTE | 2019-01-18 06:44 | NUR ---
repositioned. appears comfortable in bed.
--- NOTE | 2019-01-18 06:44 | NUR ---
Repositioned and changed wet brief. Patient appears comfortable.
--- NOTE | 2019-01-18 15:39 | NUR ---
Spoke with Palliative Care Chemical Operator Elly. Elly expresses concerns regarding Pt comfort. Pt is resting in bed with he eyes open. Secretions noted. Pt appears dyspneic as evidenced by increased respiratory rate and work of breathing. Pt also appears moderately anxious as evidenced by constant fidgeting of upper extremities. Discussed case with bedside RN Kathryn. Reviewed comfort medications. Kathryn recently placed scopalomine patch and will adminster Atropine to manage secretions. Discussed the use of Roxanol for air hunger. Kathryn reports plan to contact Dr Carson to consider one time order for deep suctioning. Palliative Care will remain available.
--- NOTE | 2019-01-18 17:59 | NUR ---
Spiritual Care routine note: Mr. Alvarado was alone in room. He awakend easily to touch, but was non-verbal. He appeared weak and restless. He seemed to be trying to cough, but was too weak. I asked palliative care RN, Michael, to review pt. I sat beside Mr. Alvarado, holding his hand. Comforted with touch and calm words of assurance. Prayer provided. Refrigerator Repairman Services will remain available.
--- NOTE | 2019-01-18 19:29 | NUR ---
SHIFT SUMMARY JAELYN GIVEN ROXANOL A COPULE TIMES FOR NONVERBAL SIGNS OF PAIN, HAD FALL THIS SHIFT (SEE FALL NOTE). FEEDER, TOO SLEEPY FOR BREAKFAST AND DINNER, BUT ATE WELL AT LUNCH, DEFINITELY ASPIRATION RISK. RT DID ONE TIME DEEP SUCTION THIS SHIFT, AND HAS SCOPOLAMINE PATCH AND ATROPINE DROPS FOR SECRETIONS. L POWERGLIDE RECEIVING VANCO AT THIS TIME. CAMERA ON, BED ALARM ON, INCONTINENT Q2 TURNS. BOTTOM VERY RED.
--- NOTE | 2019-01-18 20:52 | NUR ---
2044 PT NO BP OR PULSE, PT PROUNCED NOW; TASHA ALONSO, RN, CHARGE NURSE AT SIDE. 2049 THIS NURSE CALLED PATIENTS --MARLEY AT [phone] AND SHE VOICED BODY TO BE RELEASED [facility] IN [place], [place]. UNSURE AT THIS MOMENT IF SHE OR ANY OTHER FAMILY MEMBER ARE COMING TO HOSPITAL OR NOT. THIS NURSE REQUESTED THEY CALL IN NEXT HOUR WITH THEIR WISHES WITH ACKNOWLEDGEMENT NOTED. POST MORTEM CARE PERFORMED.
== END 2019-01-18 20:46 | DRG 871 ==
LOC: ER 11:19 → MEDS 11:20
PROVIDERS: Emergency Medicine; ADMIT Family Medicine
DX: A41.81 Sepsis due to Enterococcus (principal); G93.41 Metabolic encephalopathy; I63.9 Cerebral infarction, unspecified; N39.0 Urinary tract infection, site not specified; E87.1 Hypo-osmolality and hyponatremia; I50.32 Chronic diastolic (congestive) heart failure; I13.0 Hypertensive heart and chronic kidney disease with heart failure and stage 1 through stage 4 chronic kidney disease, or unspecified chronic kidney disease; Z51.5 Encounter for palliative care; Z79.4 Long term (current) use of insulin; I25.2 Old myocardial infarction; E78.00 Pure hypercholesterolemia, unspecified; Z95.1 Presence of aortocoronary bypass graft; I25.10 Atherosclerotic heart disease of native coronary artery without angina pectoris; M10.9 Gout, unspecified; D64.9 Anemia, unspecified; K52.9 Noninfective gastroenteritis and colitis, unspecified; Z66 Do not resuscitate; G47.33 Obstructive sleep apnea (adult) (pediatric); E87.6 Hypokalemia; N18.3 Chronic kidney disease, stage 3 (moderate); W19.XXXA Unspecified fall, initial encounter; S01.81XA Laceration without foreign body of other part of head, initial encounter; E11.22 Type 2 diabetes mellitus with diabetic chronic kidney disease
CPT/HCPCS: 31720; 36415; 51701; 70450; 71045; 71046; 80048; 80053; 81001; 82565; 82947; 83036; 83605; 83735; 84145; 85025; 87040; 87077; 87086; 87186; 87493; 93005; 93010; 96361; 96365-59; 96366-59; 96372; 96376; 97166; 97530; 97535; 99285-25; C1751; G0378; J0360; J0696; J1630; J1650; J2060; J3370; J3480; J7030; J7050